=== PATIENT | female | born 1980 | race Caucasian/White ===

== ENCOUNTER 2016-11-25 20:21 | Inpatient (IN) | payer SELFPAY ==
[~2016-11-25] VITALS: Ht 165.1 cm; Wt 80.7 kg
[~2016-11-25 20:21] MED LIST: FERR-63 PO; IBUP-779 PO; PREN1TAB49 PO
[2016-11-26] MEDS ORDERED: ACETAMINOPHEN 325MG TABLET PO ONE
[2016-11-26 00:54] LABS: CLARITY URINE CLOUDY (CLEAR); COLOR URINE YELLOW (YELLOW); GLUCOSE URINE NEGATIVE (NEGATIVE); KETONES URINE NEGATIVE (NEGATIVE); LEUKOCYTE ESTERASE URINE 3+ (NEGATIVE); NITRITE URINE NEGATIVE (NEGATIVE); OCCULT BLOOD URINE 3+ (NEGATIVE); PROTEIN URINE NEGATIVE (NEGATIVE); SPECIFIC GRAVITY URINE 1.024 (1.005-1.030); UROBILINOGEN URINE 0.2 E.U./dL (0.2-1.0)
[2016-11-26 01:27] LABS: HEMATOCRIT. 30.4 % (36.0-48.0); HEMOGLOBIN. 9.4 g/dL (12.0-16.0); MEAN CORPUSCULAR HEMOGLOBIN 23.1 pg (28.0-32.0); MEAN CORPUSCULAR HGB CONC 31.1 g/dL (31.0-37.0); MEAN CORPUSCULAR VOLUME 74.2 fL (81.0-99.0); MEAN PLATELET VOLUME 10.1 fl (7.4-10.4); PLATELET 223 x1000/uL (130-400); RED BLOOD CELL COUNT 4.09 mill/uL (4.2-5.4); RED CELL DISTRIBUTION WIDTH 17.5 % (11.6-14.6); WHITE BLOOD COUNT 29.3 x1000/uL (4.5-11.0)
[2016-11-26 01:29] LABS: CHLORIDE 104 mEq/L (98-107); INDEX HEMOLYSI 1 (1-3); INDEX ICTERIC 1 (1-4); INDEX LIPEMIC 1 (1-3)
[2016-11-26 01:31] LABS: SQUAMOUS EPITHELIAL CELL URINE 1+ /lpf (RARE/1+)
[2016-11-26 01:33] LABS: BACTERIA URINE 3+
[2016-11-26 01:35] LABS: DIFFERENTIAL COMMENT 1
[2016-11-26 01:46] LABS: ANION GAP 16; CALCIUM 8.6 mg/dL (8.5-10.1); CARBON DIOXIDE 21 mEq/L (21-32); UREA NITROGEN BLOOD 13 mg/dL (7-21); eGFR > 60 mL/min (>60)
[2016-11-26 01:53] LABS: B-HCG QUANTITATIVE 12261 mIU/mL (<3)
[2016-11-26 02:05] LABS: ANISOCYTOSIS 1+; ATYPICAL LYMPHOCYTES 1; HYPOCHROMASIA 1+; PLATELET ESTIMATE NORMAL
[2016-11-26 02:11] LABS: GIANT PLATELETS RARE
[2016-11-26] MEDS ORDERED: CEFTRIAXONE 2 G PREMIX 50 ML IV ONE (02:45)
[2016-11-26] MEDS ORDERED: CEFTRIAXONE 1 G PREMIX 50 ML IV ONE (02:45)
[2016-11-26] MEDS ORDERED: SODIUM CHLORIDE 0.9% 1,000 ML IV ONE (02:45)
[2016-11-26] MEDS ORDERED: SODIUM CHLORIDE 0.9% 1000ML BAG (SEPSIS BOLUS) IV ONE (02:45)
[2016-11-26 05:00] VITALS: BP 98/71
[2016-11-26] MEDS: SODIUM CHLORIDE 0.9% 1,000 ML IV SCH ×5 (07:00→21:58)
[2016-11-26 08:00] VITALS: BP 101/74
[2016-11-26 12:00] VITALS: BP 101/62
[2016-11-26 20:00] VITALS: BP 97/58
[2016-11-26] MEDS: MISOPROSTOL 200MCG TABLET RC SCH (21:13)
[2016-11-26] MEDS: GENTAMICIN 80MG PREMIX 100 ML IV SCH (21:58)
[2016-11-27] VITALS: BP 102/67
[2016-11-27] MEDS: AMPICILLIN 1,000 MG in SODIUM CHLORIDE 0.9% 50 ML IV SCH ×5 (00:23→23:01)
[2016-11-27 02:30] VITALS: BP 131/98
[2016-11-27] MEDS: MISOPROSTOL 200MCG TABLET RC SCH ×4 (02:35→20:49)
[2016-11-27] MEDS: GENTAMICIN 80MG PREMIX 100 ML IV SCH ×3 (06:09→22:00)
[2016-11-27] MEDS ORDERED: SODIUM CHLORIDE 0.9% 1,000 ML IV ONE (06:45)
[2016-11-27 08:00] VITALS: BP_SYST 88; BP_SYST 99; BP_DIAS 46; BP_DIAS 58
[2016-11-27 09:00] VITALS: BP 93/57
[2016-11-27] MEDS: SODIUM CHLORIDE 0.9% 1,000 ML IV SCH ×2 (10:05→17:28)
[2016-11-27 16:00] VITALS: BP 99/64
[2016-11-27 20:00] VITALS: BP 96/55
[2016-11-28] VITALS (7 sets, daily range): BP systolic 90–106; BP diastolic 46–63
[2016-11-28] MEDS: MISOPROSTOL 200MCG TABLET RC SCH ×4 (03:12→21:02)
[2016-11-28] MEDS: AMPICILLIN 1,000 MG in SODIUM CHLORIDE 0.9% 50 ML IV SCH ×4 (04:48→23:10)
[2016-11-28] MEDS: GENTAMICIN 80MG PREMIX 100 ML IV SCH ×3 (06:01→21:56)
[2016-11-28] MEDS: SODIUM CHLORIDE 0.9% 1,000 ML IV SCH ×3 (06:02→15:00)
[2016-11-29] MEDS: MISOPROSTOL 200MCG TABLET RC SCH ×4 (02:58→14:31)
[2016-11-29] MEDS: SODIUM CHLORIDE 0.9% 1,000 ML IV SCH ×2 (03:01→15:00)
[2016-11-29 04:00] VITALS: BP 97/63
[2016-11-29] MEDS: AMPICILLIN 1,000 MG in SODIUM CHLORIDE 0.9% 50 ML IV SCH ×2 (05:27→10:44)
[2016-11-29] MEDS: GENTAMICIN 80MG PREMIX 100 ML IV SCH ×3 (06:25→14:31)
[2016-11-29 08:00] VITALS: BP 129/87
[2016-11-29 12:06] VITALS: BP 107/69
[2016-11-29 13:14] LABS: MEAN CORPUSCULAR HEMOGLOBIN 23.9 pg (28.0-32.0); MEAN CORPUSCULAR HGB CONC 31.9 g/dL (31.0-37.0); MEAN CORPUSCULAR VOLUME 74.8 fL (81.0-99.0); PLATELET 218 x1000/uL (130-400); RED BLOOD CELL COUNT 2.77 mill/uL (4.2-5.4); RED CELL DISTRIBUTION WIDTH 17.4 % (11.6-14.6); WHITE BLOOD COUNT 9.4 x1000/uL (4.5-11.0)
[2016-11-29 13:27] LABS: HEMOGLOBIN 6.6 g/dL (12.0-16.0)
[2016-11-29 13:28] LABS: HEMATOCRIT 20.7 % (36.0-48.0)
[2016-11-29 15:30] VITALS: BP 110/68
[2016-11-29 15:46] VITALS: BP 107/69
[2016-11-29] MEDS ORDERED: GENTAMICIN SULFATE 80 MG in SODIUM CHLORIDE 0.9% 100 ML IV SCH (22:00)
== END 2016-11-29 15:58 | disposition home or self-care (01) | DRG 566 ==
LOC: ER 21:55 → 8WST 11-26 02:44
PROVIDERS: ADMIT Obstetrics & Gynecology; ATTEND Obstetrics & Gynecology
DX: O98.812 Other maternal infectious and parasitic diseases complicating pregnancy, second trimester (principal); A41.9 Sepsis, unspecified organism; O36.4XX0 Maternal care for intrauterine death, not applicable or unspecified; N39.0 Urinary tract infection, site not specified; Z3A.16 16 weeks gestation of pregnancy
CPT/HCPCS: 36415; 76815; 80048; 81001; 83605; 84702; 85025; 85027; 86850; 86900; 87040; 87070; 87430; 87804; 99285; C1893; J0290; J0696; J1580; J7030; J7050

== ENCOUNTER 2017-05-31 14:21 | Inpatient (IN) | payer MEDICAID, OTHER ==
[~2017-05-31] VITALS: Ht 165.1 cm; Wt 75.3 kg
[2017-05-31] MEDS ORDERED: SODIUM CHLORIDE 0.9% 1,000 ML IV ONE (17:32)
[2017-05-31 17:58] LABS: BASOPHILS % 0.6 % (0.0-2.0); EOSINOPHILS % 0.7 % (0.0-5.0); LYMPHOCYTES % 14.1 % (20.0-50.0); MEAN CORPUSCULAR HEMOGLOBIN 17.2 pg (28.0-32.0); MEAN CORPUSCULAR VOLUME 58.7 fL (81.0-99.0); MEAN PLATELET VOLUME 9.2 fl (7.4-10.4); MONOCYTES % 3.8 % (2.0-8.0); NEUTROPHILS % 80.8 % (40.0-76.0); PLATELET 279 x1000/uL (130-400); RED BLOOD CELL COUNT 3.53 mill/uL (4.2-5.4); RED CELL DISTRIBUTION WIDTH 20.2 % (11.6-14.6)
[2017-05-31 18:00] LABS: HEMATOCRIT. 20.7 % (36.0-48.0); HEMOGLOBIN. 6.1 g/dL (12.0-16.0)
[2017-05-31 18:03] LABS: CHLORIDE 105 mEq/L (98-107)
[2017-05-31 18:04] LABS: CARBON DIOXIDE 23 mEq/L (21-32)
[2017-05-31 18:26] LABS: B-HCG QUANTITATIVE 5596 mIU/mL (<3); PLATELET ESTIMATE NORMAL
[2017-05-31 18:50] LABS: CLARITY URINE CLEAR (CLEAR); COLOR URINE YELLOW (YELLOW); GLUCOSE URINE NEGATIVE (NEGATIVE); KETONES URINE NEGATIVE (NEGATIVE); LEUKOCYTE ESTERASE URINE 1+ (NEGATIVE); NITRITE URINE NEGATIVE (NEGATIVE); OCCULT BLOOD URINE NEGATIVE (NEGATIVE); PROTEIN URINE NEGATIVE (NEGATIVE); SPECIFIC GRAVITY URINE 1.025 (1.005-1.030)
[2017-06-01 04:37] LABS: BASOPHILS % 1.3 % (0.0-2.0); EOSINOPHILS % 1.2 % (0.0-5.0); HEMATOCRIT. 24.1 % (36.0-48.0); HEMOGLOBIN. 7.4 g/dL (12.0-16.0); MEAN CORPUSCULAR HEMOGLOBIN 19.8 pg (28.0-32.0); MEAN CORPUSCULAR VOLUME 64.3 fL (81.0-99.0); MEAN PLATELET VOLUME 8.9 fl (7.4-10.4); MONOCYTES % 5.5 % (2.0-8.0); PLATELET 241 x1000/uL (130-400); RED BLOOD CELL COUNT 3.75 mill/uL (4.2-5.4); RED CELL DISTRIBUTION WIDTH 27.4 % (11.6-14.6)
[2017-06-01] MEDS ORDERED: ACETAMINOPHEN 325MG TABLET PO PRN (06:30)
[2017-06-01 12:59] VITALS: BP 100/58
[2017-06-01] MEDS: MISOPROSTOL 200MCG TABLET PO SCH ×3 (15:19→22:49)
[2017-06-01] MEDS: DEXT 5%/LACTATED RINGERS 1,000 ML IV SCH (15:19)
[2017-06-01] MEDS ORDERED: METRONIDAZOLE 500 MG PREMIX 100 ML IV SCH (16:00)
[2017-06-01] MEDS ORDERED: DOXYCYCLINE 100 MG in DEXT 5% WATER 100 ML IV SCH ×2 (17:00→22:45)
[2017-06-01] MEDS ORDERED: ONDANSETRON HCL 4MG/2ML VIAL IV PRN ×2 (18:45→22:45)
[2017-06-01] MEDS ORDERED: ACETAMINOPHEN 650MG/20.3ML UDC PO PRN (18:45)
[2017-06-01] MEDS ORDERED: HYDROMORPHONE HCL/PF 2MG/ML CPJ IV NR (19:30)
[2017-06-01 20:00] VITALS: BP 130/71
[2017-06-01] MEDS ORDERED: CITRIC ACID/SODIUM CITRATE SOLN 30ML UDC PO NR (20:57)
[2017-06-01 21:06] LABS: HEMOGLOBIN. 7.5 g/dL (12.0-16.0); MEAN CORPUSCULAR HEMOGLOBIN 19.8 pg (28.0-32.0); MEAN PLATELET VOLUME 9.8 fl (7.4-10.4); PLATELET 210 x1000/uL (130-400); RED BLOOD CELL COUNT 3.76 mill/uL (4.2-5.4); RED CELL DISTRIBUTION WIDTH 27.7 % (11.6-14.6)
[2017-06-01 21:34] LABS: PLATELET ESTIMATE NORMAL
[2017-06-01] MEDS ORDERED: BUPIVACAINE HCL/PF 0.5% (5MG/ML) 10ML ONE (22:03)
[2017-06-01] MEDS ORDERED: LIDOCAINE HCL 1% 20ML VIAL (Pyxis) INJ ONE (22:04)
[2017-06-01] MEDS ORDERED: FENTANYL CITRATE/PF 50MCG/ML 2ML VIAL ONE (22:08)
[2017-06-01] MEDS ORDERED: MIDAZOLAM HCL 2 MG/2 ML VIAL ONE ×2 (22:08→22:24)
[2017-06-01] MEDS ORDERED: DIPHENHYDRAMINE 50MG/ML VIAL ONE (22:09)
[2017-06-01] MEDS ORDERED: SODIUM CHLORIDE 0.9% 10ML VIAL ONE (22:13)
[2017-06-01] MEDS ORDERED: SODIUM BICARBONATE 4% (2.4MEQ) 5ML VIAL IV ONE (22:13)
[2017-06-01] MEDS ORDERED: CEFAZOLIN SODIUM 1000MG/VIAL ONE (22:13)
[2017-06-01] MEDS ORDERED: OXYTOCIN 10 UNITS/ML 1ML ONE (22:26)
[2017-06-01] MEDS ORDERED: MORPHINE SULFATE 2 MG/ML CPJ (NOT FOR IM USE) IV PRN (22:30)
[2017-06-01] MEDS ORDERED: METHYLERGONOVINE MALEATE 0.2 MG/ML ONE (22:36)
[2017-06-01] MEDS ORDERED: DEXT 5%/LR + PITOCIN 20UNITS/L 1,000 ML IV SCH (22:36)
[2017-06-01] MEDS ORDERED: INFLUENZA VIRUS VACCINE 0.5ML SYR IM ONE (22:45)
[2017-06-01] MEDS ORDERED: IBUPROFEN 400MG TABLET PO PRN (22:45)
[2017-06-01] MEDS ORDERED: METHYLERGONOVINE MALEATE 0.2 MG/ML IM PRN (22:45)
[2017-06-01] MEDS ORDERED: OXYCODONE HCL/ACETAMINOPHEN 5/325MG TABLET PO PRN ×2 (22:45)
[2017-06-01] MEDS ORDERED: KETOROLAC 30MG/ML VIAL IV NR (22:45)
[2017-06-01] MEDS ORDERED: IBUPROFEN 600MG TABLET PO PRN (22:49)
[2017-06-02] VITALS (9 sets, daily range): BP systolic 82–98; BP diastolic 49–59
[2017-06-02] MEDS ORDERED: EPHEDRINE SULFATE 50MG/ML VIAL IV NR (01:32)
[2017-06-02 01:52] LABS: HEMOGLOBIN 7.4 g/dL (12.0-16.0)
[2017-06-02 01:55] LABS: HEMATOCRIT 23.6 % (36.0-48.0)
[2017-06-02] MEDS ORDERED: METRONIDAZOLE 500 MG PREMIX 100 ML IV SCH ×2 (06:00)
[2017-06-02] MEDS: DEXT 5%/LACTATED RINGERS 1,000 ML IV SCH (07:19)
[2017-06-02] MEDS ORDERED: PRENATAL VIT/FE FUMARATE/FA TABLET PO SCH (09:00)
[2017-06-02] MEDS: METHYLERGONOVINE MALEATE 0.2MG TABLET PO SCH ×2 (09:48→13:27)
[2017-06-02] MEDS: FERROUS SULFATE 325MG TABLET PO SCH ×2 (09:49→13:27)
[2017-06-02 10:06] LABS: BASOPHILS % 0.2 % (0.0-2.0); EOSINOPHILS % 0.1 % (0.0-5.0); HEMATOCRIT. 23.5 % (36.0-48.0); HEMOGLOBIN. 7.6 g/dL (12.0-16.0); LYMPHOCYTES % 8.9 % (20.0-50.0); MEAN CORPUSCULAR HEMOGLOBIN 22.1 pg (28.0-32.0); MEAN CORPUSCULAR VOLUME 68.4 fL (81.0-99.0); MEAN PLATELET VOLUME 8.9 fl (7.4-10.4); MONOCYTES % 3.4 % (2.0-8.0); NEUTROPHILS % 87.4 % (40.0-76.0); PLATELET 171 x1000/uL (130-400); RED BLOOD CELL COUNT 3.43 mill/uL (4.2-5.4); RED CELL DISTRIBUTION WIDTH 29.2 % (11.6-14.6)
[2017-06-02 10:17] LABS: CARBON DIOXIDE 23 mEq/L (21-32); CHLORIDE 109 mEq/L (98-107)
[2017-06-02] MEDS: MISOPROSTOL 200MCG TABLET PO SCH ×2 (10:49→14:49)
[2017-06-03] MEDS ORDERED: TETANUS, DIPHTHERIA, PERTUSSIS VAC/PF 0.5ML (>7YR OLD) IM ONE (09:00)
== END 2017-06-02 17:13 | disposition home or self-care (01) | DRG 544 ==
LOC: ER 14:21 → 6EST 06-01 06:30 → ENRESERV 06-01 11:55 → 6EST 06-01 13:00
PROVIDERS: ADMIT Hospitalist; ATTEND Hospitalist
PROC: 30233N1 Transfusion of Nonautologous Red Blood Cells into Peripheral Vein, Percutaneous Approach (ICD-10-PCS; 2017-05-31)
PROC: 10D17ZZ Extraction of Products of Conception, Retained, Via Natural or Artificial Opening (ICD-10-PCS; principal; 2017-06-01 21:00)
DX: O03.4 Incomplete spontaneous abortion without complication (principal); D62 Acute posthemorrhagic anemia; O99.013 Anemia complicating pregnancy, third trimester; Z3A.28 28 weeks gestation of pregnancy; E83.51 Hypocalcemia; O99.283 Endocrine, nutritional and metabolic diseases complicating pregnancy, third trimester
CPT/HCPCS: 36415; 76805; 80048; 80053; 81001; 84702; 85014; 85018; 85025; 86850; 86900; 86920; 88300; 88305; 90686; 90715; 96360; 99285; A4216; J0171; J0690; J1170; J1200; J1885; J2210; J2250; J2590; J3010; J3490; J7030; J7040; J7060; J7121; P9016

== ENCOUNTER 2017-11-05 17:59 | Emergency (ER) | payer MEDICAID ==
[~2017-11-05] VITALS: Ht 165.1 cm; Wt 77.0 kg
[2017-11-05 20:22] LABS: CLARITY URINE CLOUDY (CLEAR); COLOR URINE YELLOW (YELLOW); KETONES URINE TRACE (NEGATIVE); LEUKOCYTE ESTERASE URINE 1+ (NEGATIVE); NITRITE URINE NEGATIVE (NEGATIVE); OCCULT BLOOD URINE NEGATIVE (NEGATIVE); PROTEIN URINE NEGATIVE (NEGATIVE); SPECIFIC GRAVITY URINE 1.029 (1.005-1.030)
[2017-11-05 20:39] LABS: BASOPHILS % 0.8 % (0.0-2.0); EOSINOPHILS % 1.3 % (0.0-5.0); HEMATOCRIT. 34.1 % (36.0-48.0); HEMOGLOBIN. 10.4 g/dL (12.0-16.0); LYMPHOCYTES % 11.4 % (20.0-50.0); MEAN CORPUSCULAR HEMOGLOBIN 22.3 pg (28.0-32.0); MEAN CORPUSCULAR VOLUME 73.6 fL (81.0-99.0); MEAN PLATELET VOLUME 9.6 fl (7.4-10.4); MONOCYTES % 7.7 % (2.0-8.0); NEUTROPHILS % 78.8 % (40.0-76.0); PLATELET 419 x1000/uL (130-400); RED BLOOD CELL COUNT 4.63 mill/uL (4.2-5.4); RED CELL DISTRIBUTION WIDTH 21.2 % (11.6-14.6)
[2017-11-05 20:46] LABS: CHLORIDE 104 mEq/L (98-107); INR 1.1
[2017-11-05] MEDS ORDERED: FAMOTIDINE 20MG TABLET PO ONE (23:00)
[2017-11-05] MEDS ORDERED: ONDANSETRON 4MG ODT PO ONE (23:00)
[2017-11-05 23:30] VITALS: BP 98/47
== END 2017-11-05 23:55 | disposition home or self-care (01) ==
LOC: ER 18:39
DX: R10.13 Epigastric pain (principal); R11.2 Nausea with vomiting, unspecified
CPT/HCPCS: 36415; 80053; 81003; 81025; 83690; 85025; 85610; 99284; Q0162

== ENCOUNTER 2018-03-18 12:31 | Emergency (ER) | payer MEDICAID ==
[~2018-03-18] VITALS: Ht 165.1 cm; Wt 83.2 kg
[2018-03-18] MEDS ORDERED: SODIUM CHLORIDE 0.9% 1,000 ML IV ONE (13:48)
[2018-03-18 14:17] LABS: BASOPHILS % 0.6 % (0.0-2.0); EOSINOPHILS % 1.6 % (0.0-5.0); HEMATOCRIT. 28.8 % (36.0-48.0); LYMPHOCYTES % 20.1 % (20.0-50.0); MEAN CORPUSCULAR HEMOGLOBIN 22.1 pg (28.0-32.0); MEAN CORPUSCULAR VOLUME 70.7 fL (81.0-99.0); MEAN PLATELET VOLUME 9.4 fl (7.4-10.4); NEUTROPHILS % 72.7 % (40.0-76.0); PLATELET 271 x1000/uL (130-400); RED BLOOD CELL COUNT 4.08 mill/uL (4.2-5.4); RED CELL DISTRIBUTION WIDTH 18.5 % (11.6-14.6)
[2018-03-18 14:22] LABS: CHLORIDE 108 mEq/L (98-107)
[2018-03-18 14:25] LABS: PARTIAL THROMBOPLASTIN TIME 23.4 sec (23.4-31.0)
[2018-03-18 14:47] LABS: B-HCG QUANTITATIVE 18956 mIU/mL (<3)
[2018-03-18 17:31] LABS: CLARITY URINE CLEAR (CLEAR); COLOR URINE YELLOW (YELLOW); KETONES URINE NEGATIVE (NEGATIVE); LEUKOCYTE ESTERASE URINE TRACE (NEGATIVE); NITRITE URINE NEGATIVE (NEGATIVE); OCCULT BLOOD URINE NEGATIVE (NEGATIVE); PH URINE 7.5 (4.5-8.0); PROTEIN URINE NEGATIVE (NEGATIVE); SPECIFIC GRAVITY URINE 1.013 (1.005-1.030); UROBILINOGEN URINE 0.2 E.U./dL (0.2-1.0)
[2018-03-18 18:16] LABS: *COCAINE SCREEN URINE NEGATIVE (NEGATIVE); METHADONE URINE SCREEN NEGATIVE (NEGATIVE); OPIATES URINE SCREEN NEGATIVE (NEGATIVE)
[2018-03-18 18:17] LABS: *AMPHETAMINES SCREEN URINE NEGATIVE (NEGATIVE); *BARBITURATES SCREEN URINE NEGATIVE (NEGATIVE); CANNABINOID URINE SCREEN NEGATIVE (NEGATIVE); PHENCYCLIDINE URINE SCREEN NEGATIVE (NEGATIVE)
[2018-03-18 18:20] LABS: *BENZODIAZEPINES SCREEN URINE NEGATIVE (NEGATIVE)
[2018-03-18 18:22] VITALS: BP 98/57
== END 2018-03-18 18:26 | disposition home or self-care (01) ==
LOC: ER 13:00
DX: O26.892 Other specified pregnancy related conditions, second trimester (principal); R10.2 Pelvic and perineal pain; O35.8XX0 Maternal care for other (suspected) fetal abnormality and damage, not applicable or unspecified; O99.011 Anemia complicating pregnancy, first trimester; E87.8 Other disorders of electrolyte and fluid balance, not elsewhere classified; E86.0 Dehydration; R22.42 Localized swelling, mass and lump, left lower limb; Z3A.18 18 weeks gestation of pregnancy
CPT/HCPCS: 36415; 76805; 80053; 80305; 81003; 81025; 83690; 84702; 85025; 85610; 85730; 86850; 86900; 86901; 87086; 93970; 99285; J7030

== ENCOUNTER 2018-06-20 15:18 | Emergency (ER) | payer MEDICAID ==
[~2018-06-20] VITALS: Ht 165.1 cm; Wt 86.0 kg
[2018-06-20] MEDS ORDERED: HYDROCODONE/ACETAMINOPHEN 5/325MG TABLET PO ONE (16:15)
[2018-06-20 16:43] VITALS: BP 103/57
[2018-06-20] MEDS ORDERED: BACITRACIN ZINC OINT UDPKT TOP ONE (18:15)
== END 2018-06-20 19:14 | disposition home or self-care (01) ==
LOC: ER 15:18
DX: S92.344A Nondisplaced fracture of fourth metatarsal bone, right foot, initial encounter for closed fracture (principal); S92.334A Nondisplaced fracture of third metatarsal bone, right foot, initial encounter for closed fracture; S00.81XA Abrasion of other part of head, initial encounter; F17.200 Nicotine dependence, unspecified, uncomplicated; Z79.899 Other long term (current) drug therapy; V09.9XXA Pedestrian injured in unspecified transport accident, initial encounter; Y93.89 Activity, other specified; Y92.89 Other specified places as the place of occurrence of the external cause; Y99.8 Other external cause status
CPT/HCPCS: 29515; 70450; 72125; 72170; 73080; 73090; 73562; 73610; 73630; 81025; 99284